=== PATIENT | male | born 1990 | race American Indian/Alaskan Native ===

== ENCOUNTER 2021-03-03 12:51 | Emergency (ER) | payer BC ==
--- NOTE | 2021-03-03 14:10 | Emergency Department Report ---
HPI - General Chief Complaint: Extremity Injury, Upper Time Seen by Provider: 03/03/21 13:21 - HPI HPI: Room 29 The patient is a 30-year-old male present with a chief complaint of right wrist pain. Patient states he believes he injured his wrist at work lifting boxes but does not recall a specific injury. Patient states the pain began yesterday there is pain with movement. Patient gives his pain a score of 10/10. Patient denies history of any direct trauma to the right wrist ED Past Medical Hx - Past Medical History Previous Medical History?: No - Surgical History Past Surgical History?: No - Family History Family history: no significant - Social History Smoking Status: Current Every Day Smoker (1/2 pack/day) Substance Use Type: Alcohol (Occasional) - Medications Home Medications: Home Medications Medication Instructions Recorded Confirmed Last Taken Type HYDROcodone/APAP 5-325 [Burdett 1 - 2 each PO Q6HR PRN #20 tablet 03/03/21 Unknown Rx 5/325] Ibuprofen [Motrin 800 MG tab] 800 mg PO Q8HR PRN #20 tablet 03/03/21 Unknown Rx ED Review of Systems ROS: Stated complaint: RT WRIST INJURY Other details as noted in HPI Constitutional: denies: fever Respiratory: no symptoms reported Endocrine: no symptoms reported Musculoskeletal: arthralgia Physical Exam - Physical Exam Vital Signs: Vital Signs 03/03/21 13:00 Temperature 98.7 F Pulse Rate 66 Respiratory 18 Rate Blood Pressure 101/69 O2 Sat by Pulse 99 Oximetry Physical Exam: GENERAL: The patient is well-developed well-nourished male sitting in chair not appearing to be in acute distress. [] HEENT: Normocephalic. Atraumatic. Extraocular motions are intact. Patient has moist mucous membranes. NECK: Supple. Trachea midline HEART/CARDIOVASCULAR: Regular. There is no tachycardia. 2+ right radial pulse SKIN: There is no rash. There is no edema. There is no diaphoresis. NEURO: The patient is awake, alert, and oriented. The patient is cooperative. The patient has no focal neurologic deficits. The patient has normal speech. Right hand neuro intact MUSCULOSKELETAL: There is no tenderness in the anatomical snuffbox. Gilberto maneuver causes pain circumferentially around the right wrist ED Course Vital Signs 03/03/21 13:00 Temperature 98.7 F Pulse Rate 66 Respiratory 18 Rate Blood Pressure 101/69 O2 Sat by Pulse 99 Oximetry ED Medical Decision Making - Radiology Data Radiology results: report reviewed (Right wrist x-ray), image reviewed (Right wrist x-ray) interpreted by me: Right wrist [id number] lucency to the ulnar styloid. [facility] [address] [place] [address] XRay Report Signed Patient: KAYLEY CARDENAS MR# : [id number] : 1990 Acct:[id number] Age/Sex: 30 / M ADM Date: 03/03/21 Loc: ED Attending Dr: Ordering Physician: JUAN TONEY MD Date of Service: 03/03/21 Procedure(s): XR wrist 3+V RT Accession Number(s): [id number] cc: JUAN TONEY MD Fluoro Time In Minutes: XR wrist 3+V RT INDICATION / CLINICAL INFORMATION: Pain. COMPARISON: None available. FINDINGS: BONES/JOINT(S): There is a nondisplaced fracture of the ulnar styloid. There is no additional fracture. No significant degenerative changes. SOFT TISSUES: No significant abnormality. ADDITIONAL FINDINGS: None. Signer Name: Bigg Heller MD Signed: 03/03/2021 2:31 PM Workstation Name: [id number] Transcribed By: KRISTEL Dictated By: Bigg Heller MD Electronically Authenticated By: Bigg Heller MD Signed Date/Time: 03/03/211430 DD/ 29 TD/TT: Print Cancel - Differential Diagnosis Wrist sprain, occult fracture, carpal tunnel syndrome Critical care attestation.: If time is entered above; I have spent that time in minutes in the direct care of this critically ill patient, excluding procedure time. ED Disposition Clinical Impression: Fracture of ulnar styloid, Right wrist pain Disposition: 01 HOME / SELF CARE / HOMELESS Is pt being admited?: No Does the pt Need Aspirin: No Condition: Stable Instructions: Ulnar Fracture Additional Instructions: Return to the emergency department should you develop worsening symptoms, inability to tolerate food or liquids, high fever or any other concerns Prescriptions: Ibuprofen [Motrin 800 MG tab] 800 mg PO Q8HR PRN #20 tablet PRN Reason: Pain, Moderate (4-6) HYDROcodone/APAP 5-325 [Burdett 5/325] 1 - 2 each PO Q6HR PRN #20 tablet PRN Reason: Pain Referrals: PATRICK VILLARREAL MD [Staff Physician] - 3-5 Days (Dr. Villarreal is an or thopedic surgeon. Please follow-up with him for further evaluation) Time of Disposition: 14:56
--- NOTE | 2021-03-03 14:35 | XRay Report ---
XR wrist 3+V RT INDICATION / CLINICAL INFORMATION: Pain. COMPARISON: None available. FINDINGS: BONES/JOINT(S): There is a nondisplaced fracture of the ulnar styloid. There is no additional fractur e. No significant degenerative changes. SOFT TISSUES: No significant abnormality. ADDITIONAL FINDINGS: None. Signer Name: Bigg Heller MD Signed: 03/03/2021 2:31 PM Workstation Name: [id number]
[2021-03-03 15:16] VITALS: BP 130/77
== END 2021-03-03 15:17 | disposition home or self-care (01) ==
LOC: ED 12:51
DX: S52.611A Displaced fracture of right ulna styloid process, initial encounter for closed fracture (principal); F17.200 Nicotine dependence, unspecified, uncomplicated; Z72.89 Other problems related to lifestyle; X50.0XXA Overexertion from strenuous movement or load, initial encounter; Y93.89 Activity, other specified; Y92.89 Other specified places as the place of occurrence of the external cause; Y99.0 Civilian activity done for income or pay
CPT/HCPCS: 99283